=== PATIENT | female | born 1980 | race Native Hawaiian/Other Pacific Islander ===

== ENCOUNTER 2019-07-21 09:32 | Emergency (ER) | payer BC ==
[~2019-07-21] VITALS: Ht 177.8 cm; Wt 104.3 kg
[2019-07-21 09:43] VITALS: BP 114/78; TEMP 98.1
[2019-07-21] MEDS ORDERED: CELEXA40 MG PO (09:52)
== END 2019-07-21 10:35 | disposition home or self-care (01) ==
LOC: ED 09:32
DX: L03.011 Cellulitis of right finger (principal)
CPT/HCPCS: 99282

== ENCOUNTER 2020-12-07 09:35 | Emergency (ER) | payer OTHER ==
[~2020-12-07 09:35] MED LIST: CELEXA40 MG PO
== END 2020-12-07 23:25 | disposition home or self-care (01) ==
LOC: ED 09:35
DX: S00.03XA Contusion of scalp, initial encounter (principal); S13.4XXA Sprain of ligaments of cervical spine, initial encounter; S40.012A Contusion of left shoulder, initial encounter; V49.40XA Driver injured in collision with unspecified motor vehicles in traffic accident, initial encounter; Y92.89 Other specified places as the place of occurrence of the external cause
CPT/HCPCS: 99283